=== PATIENT | female | born 1990 | race Asian ===

== ENCOUNTER → 2018-09-26 | Outpatient (CLI) | payer OTHER ==
--- NOTE | 2018-09-30 00:18 | SLEEPCENT ---
DATE OF PROCEDURE: 09/26/2018 ORDERED BY: Shilpa Scott Nocturnal polysomnography was performed for evaluation of sleep physiology in this patient with a history of snoring, excessive somnolence and abnormal nocturnal oximetry tracing. 7 hours and 33 minutes of data were reviewed. There were 416 minutes of sleep identified. Sleep latency was short at 5 minutes. Rapid eye movement (REM) latency was normal at 90 minutes. Sleep architecture was good with four REM cycles. Overall sleep efficiency 94%. The electrocardiogram showed a sinus rhythm with small complexes, average heart rate 64 beats per minute. EEG showed normal waveforms for awake and sleep stages. There were no obstructive central or mixed apneic events identified. No significant snoring related arousals were seen. There was some minor limb activity. No trains of events. Limb movement arousal index of 3. IMPRESSION: Normal nocturnal polysomnography.
== END ==
LOC: M SLEEP 20:00
PROVIDERS: ATTEND Nurse Practitioner Adult Health
DX: G47.30 Sleep apnea, unspecified (principal)

== ENCOUNTER 2019-02-18 20:05 | Emergency (ER) | payer OTHER ==
[~2019-02-18] VITALS: Ht 149.9 cm; Wt 57.3 kg
[2019-02-18] MEDS ORDERED: birth control pills PO (20:09)
[2019-02-18 22:00] LABS: BASO # 0.1 10^3/uL (0.0-0.2); BASO % 0.7 % (0.0-1.0); EOS # 0.5 10^3/uL (0.0-0.5); EOS % 3.9 % (0.0-3.0); HEMATOCRIT 41.9 % (36.0-47.0); HEMOGLOBIN 13.8 g/dl (12.0-15.5); LYMPH # 3.6 10^3/uL (1.5-5.0); LYMPH % 28.7 % (24.0-44.0); MEAN CORPUSCULAR HEMOGLOBIN 29.4 pg (27.0-33.0); MEAN CORPUSCULAR HGB CONC 32.9 g/dl (32.0-36.5); MEAN CORPUSCULAR VOLUME 89.3 fl (80.0-96.0); MONO # 0.5 10^3/uL (0.0-0.8); MONO % 4.1 % (0.0-5.0); NEUTROPHILS # 7.8 10^3/uL (1.5-8.5); NEUTROPHILS % 62.4 % (36.0-66.0); PLATELET COUNT, AUTOMATED 314 10^3/uL (150-450); RED BLOOD COUNT 4.69 10^6/uL (4.00-5.40); WHITE BLOOD COUNT 12.6 10^3/uL (4.0-10.0)
[2019-02-18 22:03] LABS: URINE PREG TEST NEGATIVE (NEGATIVE)
[2019-02-18 22:13] LABS: ALBUMIN 3.6 GM/DL (3.2-5.2); ALT/SGPT 23 U/L (12-78); BILIRUBIN,DIRECT < 0.1 MG/DL (0.0-0.2); BILIRUBIN,TOTAL 0.3 MG/DL (0.2-1.0); BLOOD UREA NITROGEN 11 MG/DL (7-18); CALCIUM LEVEL 8.8 MG/DL (8.5-10.1); CARBON DIOXIDE LEVEL 25 MEQ/L (21-32); CHLORIDE LEVEL 104 MEQ/L (98-107); CREATININE FOR GFR 0.68 MG/DL (0.55-1.30); GLOMERULAR FILTRATION RATE > 60.0 (>60); GLUCOSE, FASTING 99 MG/DL (70-100); LIPASE 194 U/L (73-393); SODIUM LEVEL 139 MEQ/L (136-145); TOTAL PROTEIN 7.4 GM/DL (6.4-8.2)
[2019-02-18] MEDS ORDERED: ISOVUE-370 76% 100ML VIAL (Q9967) As Ordered ONE (22:42)
[2019-02-18 22:46] VITALS: BP 125/83
--- NOTE | 2019-02-18 23:26 | REPVR ---
PROCEDURE INFORMATION: Exam: CT Abdomen And Pelvis With Contrast Exam date and time: 02/18/2019 10:57 PM Clinical history: 28 years old, female; Abdominal pain; Localized; Right; Additional info: Right sided abd pain TECHNIQUE: Imaging protocol: Computed tomography of the abdomen and pelvis with intravenous contrast. Radiation optimization: All CT scans at this facility use at least one of these dose optimization techniques: automated exposure control; mA and/or kV adjustment per patient size (includes targeted exams where dose is matched to clinical indication); or iterative reconstruction. Contrast material: ISOVUE 370; Contrast volume: 100 ml; Contrast route: IV; COMPARISON: No relevant prior studies available. FINDINGS: Lungs: The visualized lung bases are essentially clear. Liver: Normal. No mass. Gallbladder and bile ducts: No gallstones are evident, but ultrasound would be more sensitive. No gross biliary ductal dilatation. Pancreas: Normal. No ductal dilation. Spleen: Some splenic clefts are noted. The spleen appears otherwise unremarkable. Adrenals: Normal. No mass. Kidneys and ureters: Normal. No hydronephrosis. Stomach and bowel: The unopacified small bowel is not significantly distended to suggest obstruction. The large bowel is grossly unremarkable in appearance. Appendix: The appendix appears normal. Intraperitoneal space: No free air or significant free fluid. Vasculature: Unremarkable. No abdominal aortic aneurysm. Lymph nodes: Unremarkable. No enlarged lymph nodes. Bladder: Unremarkable as visualized. Reproductive: No gross adnexal abnormality is apparent, but ultrasound would be more appropriate in this regard. Bones/joints: Unremarkable. No acute fracture. Soft tissues: Unremarkable. IMPRESSION: No acute abnormality identified. Electronically signed by: Ralph Mayfield On 02/18/2019 23:26:54 PM
== END 2019-02-19 00:24 | disposition home or self-care (01) ==
LOC: M ED 20:05
DX: R10.9 Unspecified abdominal pain (principal); R11.2 Nausea with vomiting, unspecified; Z79.3 Long term (current) use of hormonal contraceptives
CPT/HCPCS: 36415; 74177; 80048; 80076; 81001; 83690; 84703; 85025; 93041; 99284; Q9967

== ENCOUNTER 2019-03-14 15:57 | Emergency (ER) | payer OTHER ==
[~2019-03-14] VITALS: Ht 149.9 cm; Wt 59.1 kg
[~2019-03-14 15:57] MED LIST: birth control pills PO
[2019-03-14] MEDS ORDERED: KETOROLAC 30 MG/ML VIAL (J1885) IV ONE ×2 (16:30→19:00)
[2019-03-14] MEDS ORDERED: ONDANSETRON 4MG/2ML VIAL (J2405) IV ONE (16:30)
[2019-03-14] MEDS ORDERED: GNP650TA8 PO (16:30)
--- NOTE | 2019-03-14 17:11 | REP ---
Clinical: Trauma . Comparison: None . Findings: The ventricles, sulci, and cisterns are normal in position and appearance. Renee-white differentiation is maintained. No acute intracranial hemorrhage, mass/mass effect, pathology or trauma/injury. No evidence for acute infarction. No extra-axial fluid collection. Calvarium is intact. Paranasal sinuses and mastoid air cells are clear. Impression: Normal noncontrast head CT. No evidence for acute intracranial pathology or trauma/injury. Electronically Signed by Reno Cortez MD 03/14/2019 05:03 P
--- NOTE | 2019-03-14 17:12 | REP ---
Clinical: Trauma . Technique: Axial noncontrast images from the skull base to the thoracic inlet with coronal and sagittal re-formations Findings: Normal alignment is maintained. Cervical vertebral bodies including transverse processes and spinous processes are intact and there is no evidence for acute fracture / compression injury or subluxation. Spinal canal is patent. Posterior elements are intact. Paravertebral soft tissues are normal. Impression: Normal noncontrast cervical spine CT. No evidence for acute pathology or trauma/injury. Electronically Signed by Reno Cortez MD 03/14/2019 05:04 P
[2019-03-14] MEDS ORDERED: METOCLOPRAMIDE INJ 10MG/2ML VIAL (J2765) IV ONE (17:30)
[2019-03-14] MEDS ORDERED: REGL10TA6 PO (18:40)
[2019-03-14] MEDS ORDERED: ONDA4TAB6 PO (18:40)
[2019-03-14] MEDS ORDERED: KETO10TAB PO (18:40)
[2019-03-14] MEDS ORDERED: ACETAMINOPHEN 500 MG TAB PO ONE (19:00)
[2019-03-14 19:10] VITALS: BP 127/60
[2019-03-14] MEDS ORDERED: ONDANSETRON 4 MG ORAL DISINTEGRATING TAB (Q0162 PER 1MG) PO ONE (19:30)
[2019-03-14] MEDS ORDERED: METOCLOPRAMIDE 10 MG TAB PO ONE (19:30)
[2019-03-14] MEDS ORDERED: KETOROLAC TROMETHAMINE 10 MG TAB PO ONE (19:30)
== END 2019-03-14 19:34 | disposition home or self-care (01) ==
LOC: M ED 15:57
DX: S06.0X0A Concussion without loss of consciousness, initial encounter (principal); W10.8XXA Fall (on) (from) other stairs and steps, initial encounter; Y92.018 Other place in single-family (private) house as the place of occurrence of the external cause; Z91.013 Allergy to seafood; Z79.1 Long term (current) use of non-steroidal anti-inflammatories (NSAID); Z79.83 Long term (current) use of bisphosphonates
CPT/HCPCS: 70450; 72125; 80047; 84702; 96374; 96375; 96376; 99284; J1885; J2405; J2765; Q0162